=== PATIENT | female | born 1975 | race Caucasian/White ===

== ENCOUNTER → 2022-10-11 14:33 | Outpatient (CLI) | payer OTHER, SELFPAY ==
[2022-10-11 17:29] LABS: Free Thyroxine Index 2.8 ug/dL (5.93-13.13); T4 (Thyroxine) 9.3 ug/dl (5.53-11.0); Triiodothryronine (T3) Uptake 30 % (23.5-40.5)
== END ==
PROVIDERS: PCP Nurse Practitioner Family; Visit Provider Physician Assistant
DX: R00.2 Palpitations (principal); R42 Dizziness and giddiness; R55 Syncope and collapse; R00.0 Tachycardia, unspecified
CPT/HCPCS: 36415; 84436; 84443; 84479; 93270

== ENCOUNTER → 2022-11-15 12:56 | Outpatient (CLI) | payer OTHER, SELFPAY ==
--- NOTE | 2022-11-15 12:57 | NM_ITS ---
APPROVED REPORT Exam: Nuclear Stress Test Indication: HTN, FM HX, C.P., SOB, PALPITATIONS, SYNCOPE, FATIGUE Patient Location: Outpatient Stress Tech: Myrtle [place] Tech:Jessica Clements, ARRT RT (R)(N)(M) Ht: 5 ft 7 in Wt: 170 lbs Bra Size: 36D HR: 71 bpm BP: 134/85 mmHg BSA: 1.89 m2 Rhythm: NSR TID: 1.20 BMI: 26.6 History: HTN, FM HX, C.P., SOB, PALPITATIONS, SYNCOPE, FATIGUE Procedure: Patient exercised on Chris protocol 7:00 minutes and sec, resting heart rate 71 bpm, resting blood pressure 134/85 mmHg, with exercise maximum heart rate achived was 183 bpm which is 106 % of the maximum predicted heart rate and blood pressure was 162/88 mmHg. Test was stopped due to FATIGUE. Patient denied any complaint of chest pain. Patient has Average exercise capacity, achieved 10.1 METs of workload on treadmill, the blood pressure response to exercise was Normal. Cardiac Stress and Resting SPECT Images: Cardiac Stress and Resting SPECT images were obtained using technetium 99m Myoview 31.0 mCi stress and 10.02 mCi at rest. Resting and stress imaging in both supine and prone positions demonstrate no evidence of focal reversible or fixed perfusion defects. There is borderline increased transient ischemic dilatation ratio (TID 1.20), suggestive of possible multivessel disease or balanced ischemia. Gated imaging demonstrates normal global and regional LV systolic function. LVEF is calculated at 59%. Conclusion: No evidence of focal reversible or fixed perfusion defects. Borderline increased transient ischemic dilatation ratio (TID 1.20), suggestive of possible multivessel disease or balanced ischemia. Gated imaging demonstrates normal global and regional LV systolic function. LVEF is calculated at 59%. Electronically signed by : Noreen Mack MD 11/18/2022 22:20:21
--- NOTE | 2022-11-15 14:57 | CA_ITS ---
APPROVED REPORT Exam: Exercise Treadmill Technologist: Myrtle Maciel, Ht: 5 ft 7 in Wt: 174 lbs BSA: 1.91 m2 HR: 71 bpm BP: 134/85 mmHg Rhythm: NSR Medical History Medications: Alprazolam,,,,, BisOPROLOL Fumarate,,,,, KETORlac,,,,, Diclofenac Sodium,,,,, Contrave,,,,, NUrtec odt,,,,, Stress Test Details Test: Chris HR Resting HR: 84 bpm Max Heart Rate (APMHR): 173 bpm Max HR Achieved: 183 bpm Target HR (85% APMHR): 147 bpm % of APMHR: 106 Recovery HR: 117 bpm HR response to stress: Normal HR response to stress BP Resting BP: 136.0/84.0 mmHg Max BP: 162.0/88.0 mmHg Recovery BP: 133.0/73.0 mmHg BP response to stress: Normal blood pressure response to stress. ECG Resting ECG: NSR Stress ECG: No significant ST changes Arrhythmia: None Recovery ECG: No significant ST changes Recovery Arrhythmia: None Clinical Exercise duration: 07:00 min Highest Stage Achieved: III Exercise capacity: 10.1 METs Overall Exercise Capacity for Age: Average Stress ECG Conclusion The patient was able to exercise for a total of 7 minutes. She achieved a total of 10.1 METS. She has average exercise capacity compared to age and sex matched peers. She has normal HR and BP response to exercise. Max HR: 183 % of PM: 106% Max BP: 162/88 Mets: 10.1 Test stopped due to: SOA, Fatigue Symptoms: Mild tightness in throat. No CP. Arrhythmias/Ectopy: None ST-T Changes: Within normal ST response to exercise. Conclusion: Average exercise capacity. Unremarkable ECG stress test. Myoview images reported separately. Test Summary REST . . . . . . . Sitting REST . . . . . . . Standing REST 03:11 0.0 0.0 84 . 136/ 84 . . Stage 1 01:00 10.0 1.7 116 . . . . Stage 1 02:00 10.0 1.7 131 . . . . Stage 1 03:00 10.0 1.7 142 . 162/ 88 . . Stage 2 01:00 12.0 2.5 158 . . . . Stage 2 02:00 12.0 2.5 165 . . . . Stage 2 03:00 12.0 2.5 172 . . . . Stage 3 01:00 14.0 3.4 183 . . . Stop exercise at 07:00 RECOVERY 01:00 0.0 0.0 166 . . . . RECOVERY 02:00 0.0 0.0 142 . 156/ 75 . . RECOVERY 03:00 0.0 0.0 123 . 156/ 75 . . RECOVERY 04:00 0.0 0.0 110 . 146/ 71 . . RECOVERY 05:00 0.0 0.0 117 . 133/ 73 . . RECOVERY 05:17 0.0 0.0 107 . 133/ 73 . . Electronically signed by : Noreen Mack MD 11/18/2022 22:17:59
== END ==
LOC: RAD 12:57
PROVIDERS: PCP Nurse Practitioner Family; Visit Provider Nurse Practitioner
DX: R06.00 Dyspnea, unspecified (principal); R07.89 Other chest pain; R42 Dizziness and giddiness; R00.2 Palpitations; R00.0 Tachycardia, unspecified
CPT/HCPCS: 78452; 93017; A9502

== ENCOUNTER → 2022-11-21 14:52 | Outpatient (CLI) | payer OTHER, SELFPAY ==
[2022-11-21 15:42] LABS: D-Dimer 0.47 ug/mL (0.0-0.5)
== END ==
PROVIDERS: PCP Nurse Practitioner Family; Visit Provider Internal Medicine
DX: R00.0 Tachycardia, unspecified (principal); R00.2 Palpitations; R06.00 Dyspnea, unspecified; R42 Dizziness and giddiness
CPT/HCPCS: 36415; 85378

== ENCOUNTER → 2023-01-23 15:03 | Outpatient (CLI) | payer OTHER, SELFPAY | PROVIDERS: PCP Nurse Practitioner Family; Visit Provider Internal Medicine | DX: R00.0 Tachycardia, unspecified (principal); R00.2 Palpitations; R06.00 Dyspnea, unspecified; R07.89 Other chest pain; R42 Dizziness and giddiness | CPT/HCPCS: 93270 ==

== ENCOUNTER 2023-02-25 09:36 | Outpatient (CLI) | payer OTHER, SELFPAY ==
--- NOTE | 2023-02-25 09:55 | MR_ITS ---
APPROVED REPORT Hostel Manager: CLINICAL INDICATION Persistent tachycardia, evaluation for myocarditis TECHNIQUE Image Acquisition: Cardiac magnetic resonance (CMR) was performed on Siemens Espree MRI 1.5T scanner. Software platform sequences were performed using the Siemens poLight MR B19 platform. A set of three-plane, low-resolution, large [id number] localizers were initially acquired. Then axial, coronal, sagittal TrueFISP, as well as axial HASTE images, were obtained. These were followed by gated TrueFISP breathold cinematic sequences obtained in the short axis with 8 mm slices and 2 mm gaps, 2-chamber (vertical long axis), 3-chamber, 4-chamber (horizontal long axis). A bolus of contrast was injected intravenously with first-pass sequences obtained in the short axis and four-chamber planes. After approximately 10 minutes, a TI grip sequence was performed to determine the optimal TI time. Using the optimized TI time, delayed contrast enhancement segmented inversion???recovery TurboFLASH sequences were obtained in the short axis, 2-chamber, 3-chamber, and 4-chamber projections. 2D-velocity phase mapping was performed. Functional parameters were calculated by offline analysis on an independent workstation ([employer], [employer]). Contrast: ProHance??? (Gadoteridol) FINDINGS MORPHOLOGY AND FUNCTION Left ventricle: The left ventricle is normal in size. The indexed left ventricular end-diastolic volume (LVEDVi) is 62 ml/m2 (reference range 57-105 ml/m2 in males, 56-96 ml/m2 in females). Normal left ventricular systolic function is present. There is normal left ventricular wall thickness. There are no regional wall motion abnormalities noted. LVEF is calculated at 63% (reference range 57-77%). Right ventricle: The right ventricle is normal in size. The indexed right ventricular end-diastolic volume (RVEDVi) is 70 ml/m2 (reference range 61-121 ml/m2 in males, 48-112 ml/m2 in females). Normal right ventricular systolic function is present. RVEF is calculated at 57% (reference range 52-72% in males, 51-71% in females). Atria: The left atrium is normal in size. The maximum indexed left atrial volume is 28 ml/m2 (reference range 26-52 ml/m2 in males, 27-53 ml/m2 in females). The right atrium is normal in size. The maximum indexed right atrial volume is 23 ml/m2 (reference range 18-90 ml/m2). Aorta: The diameter of the aortic annulus is normal, measuring 23 mm (coronal view reference range 21-30 mm in males, 19-27 mm in females). The diameter of the aortic sinus is normal, measuring 30 mm (coronal view reference range 25-42 mm in males, 24-36 mm in females). The diameter of the sinotubular junction is normal, measuring 25 mm (coronal view reference range 18-32 mm in males, 18-28 mm in females). The diameters of the ascending and descending thoracic aorta are normal. Main pulmonary artery: The main pulmonary artery diameter is normal. Pericardium: The pericardial thickness is normal. The pericardial thickness measures 3.0 cm (normal < 4.0 cm). There is no pericardial effusion. VALVES The valvular morphologies in the visualized sequences appear normal. There is no significant valvular stenosis or regurgitation of the mitral, aortic, tricuspid, or pulmonic valve noted visually. Systolic anterior motion of the mitral valve is not visualized. Ratio of pulmonary to systemic flow, Qp:Qs ratio = 1.1 (normal < or = 1.2), demonstrating no evidence of hemodynamically significant shunt. TISSUE CHARACTERIZATION Resting Perfusion: There is resting hypoperfusion present at the LV apex. Myocardial Fibrosis and/or edema: Normal gadolinium kinetics are present. No evidence of late gadolinium enhancement is noted, consistent with absence of myocardial scarring, infarction, or necrosis. T2-weighted imaging demonstrates no evidence of myocardial edema or inflammation. OTHER There is a well-defined, rounded mass in the liver measuring up to 1.5 cm in diameter. This mass appears hypointense on T2-weighted black blood sequences, most likely representing a simple hepatic cyst. IMPRESSION Normal LV size with normal LV systolic function. LVEDVi= 62 ml/m2 and LVEF= 63%. Normal RV size with normal RV systolic function. RVEDVi= 70 ml/m2 and RVEF= 57%. No atrial enlargement. No CMR evidence of myocardial scarring, infarction, or necrosis. No evidence of myocardial edema or inflammation. Perfusion analysis demonstrates resting hypoperfusion of the LV apex (but without clear evidence of myocardial scar). Ratio of pulmonary to systemic flow, Qp:Qs ratio = 1.1 (normal < or = 1.2), demonstrating no evidence of hemodynamically significant shunt. Hepatic cyst is noted. Overall, this CMR demonstrates normal biventricular systolic function with no evidence of myocarditis. Resting hypoperfusion of the LV apex is present, but without any clear evidence of myocardial fibrosis, infarction, or scarring. COMPARISON None CRITICAL RESULT None COMMUNICATION Per this written report The findings of this cardiac MR were reviewed, reported, and signed by Rubin Mack MD (Drawing In Machine Tender). Conclusion Electronically signed by : Noreen Mack MD 03/04/2023 02:19:15
[2023-02-25 10:11] LABS: Blood Urea Nitrogen 16 mg/dl (7-17); Estimated Glomerular Filt Rate 67 ml/min (>60); GFR (African American) 81 ML/MIN (>60)
[2023-02-25] MEDS: 0.9 % SODIUM CHLORIDE 50 ML VIAL IV (11:23)
[2023-02-25] MEDS: GADOTERIDOL INJ 17ML SYRINGE 17 ML IV (11:23)
[2023-02-25] MEDS: SODIUM CHLORIDE 0.9% 10ML SYR (RAD ONLY) 10 ML IV (11:23)
== END 2023-02-25 23:59 ==
LOC: RAD 09:36
PROVIDERS: PCP Nurse Practitioner Family; Visit Provider Internal Medicine
DX: R00.2 Palpitations (principal); R00.0 Tachycardia, unspecified; R42 Dizziness and giddiness; R55 Syncope and collapse
CPT/HCPCS: 36415; 75561; 82565; 84520; A9576